=== PATIENT | male | born 1965 | race Caucasian/White ===

== ENCOUNTER → 2017-08-06 | Outpatient (CLI) | payer BC ==
[~2017-08-06] MED LIST: CENTRUM COMPLE1 EACH PO; DELTASONE20 MG PO; FISH OIL500 M1 PO; GARLIC1000 M1 PO; VITAMIN D-32000 UNIT PO; ZETIA10 MG PO
[2017-08-06 12:26] LABS: BILIRUBIN NEGATIVE (NEGATIVE); BLOOD NEGATIVE (NEGATIVE); CLARITY CLEAR (CLEAR); COLOR YELLOW (YELLOW); GLUCOSE NEGATIVE (NEGATIVE); KETONE NEGATIVE (NEGATIVE); LEUKO ESTERASE NEGATIVE (NEGATIVE); NITRITE NEGATIVE (NEGATIVE); SPECIFIC GRAVITY 1.025 (1.005-1.030); UROBILINOGEN 0.2 E.U./dl (0.2-1.0)
[2017-08-06 12:29] LABS: BASO # 0.1 10*3/uL (0.0-0.1); BASO % 0.7 % (0.0-1.0); EOS # 0.2 10*3/uL (0.0-0.4); EOS % 2.5 % (1.0-4.0); HEMATOCRIT 48.1 % (42.0-52.0); HEMOGLOBIN 16.6 g/dl (14.0-18.0); LYMPH # 2.6 10*3/uL (1.3-4.4); LYMPH % 29.5 % (27.0-41.0); MEAN CORPUSCULAR HGB 31.7 pg (27.0-31.0); MEAN CORPUSCULAR HGB CONC 34.5 g/dl (33.0-37.0); MEAN PLATELET VOLUME 9.8 fl (9.6-12.3); MONO # 0.6 10*3/uL (0.1-1.0); MONO % 6.5 % (3.0-9.0); NEUT # 5.4 10*3/uL (2.3-7.9); NEUT % 60.6 % (47.0-73.0); PLATELET COUNT AUTOMATED 247 10*3/uL (130-400); RED BLOOD COUNT 5.23 10*6/uL (4.50-5.90); RED CELL DISTRI WIDTH 12.3 % (0-14.5); WHITE BLOOD COUNT 8.9 10*3/uL (4.8-10.8)
[2017-08-06 12:49] LABS: BUN 20 mg/dl (7-24); CHLORIDE 107 mmol/L (98-107); CREATININE 0.84 mg/dL (0.70-1.30); POTASSIUM 4.1 mmol/L (3.5-5.1); SODIUM 140 mmol/L (136-145)
[2017-08-06 12:54] LABS: ACT PARTIAL THROMBO TIME 25.5 SECONDS (20.8-31.5); INTERNATIONAL NORM RATIO 0.9 (2.0-3.5)
[2017-08-06 12:55] LABS: EPITHELIAL CELLS 0-2; MUCOUS 1+; WBC 0-2 wbc/hpf (0-5)
== END | disposition home or self-care (01) ==
LOC: LAB 11:03
PROVIDERS: Surgery
DX: Z01.818 Encounter for other preprocedural examination (principal); K40.90 Unilateral inguinal hernia, without obstruction or gangrene, not specified as recurrent; R79.1 Abnormal coagulation profile

== ENCOUNTER → 2017-08-12 | Day surgery (SDC) | payer BC ==
[2017-08-06 11:20] VITALS: BP 133/80
[~2017-08-12] VITALS: Ht 177.8 cm; Wt 77.1 kg
[~2017-08-12] MED LIST changes: +NORCO 5-325 TA1 EACH PO
--- NOTE | ~2017-08-12 | O ---
[place], [place] OPERATIVE NOTE NAME: BURTON PIERRE UNIT #: [id number] ROOM: DOCTOR: PASHA FORD MD BIRTHDATE: [birth year] DOS: 08/12/2017 PREOPERATIVE DIAGNOSIS: Right inguinal hernia. POSTOPERATIVE DIAGNOSIS: Right inguinal hernia. PROCEDURE: Right inguinal hernia repair with plug and mesh (large, light). SURGEON: Pasha Ford MD CHIEF COMMUNICATIONS OFFICER: MS3. ANESTHESIA: General with endotracheal intubation. INDICATIONS: This is a 51-year-old gentleman who is here for right inguinal hernia repair with mesh and plug. The procedure and its complications were explained to the patient in detail preoperatively. Complications that were discussed included, but were not limited to bleeding, infection, recurrence, prolonged postoperative pain, damage to underlying vital structures and infection. He agreed to proceed. DESCRIPTION OF PROCEDURE: After identifying the patient, the patient was brought to the operating suite and laid in the supine position. After induction of general anesthesia, timeout procedure was called and the parts were then painted and draped in the usual sterile fashion. An incision was made in the right groin, parallel to the right inguinal ligament. The skin and the subcutaneous tissue were incised in the line of the incision. The external oblique aponeurosis was incised on the line of its fibers. A Platina drain was encircled around the cord structures. Indirect hernia was found and this was from the cord structures and then excised and sent for histopathological diagnosis along with the cord lipoma. The remnant of the sac was transfixed with the help of 0 Vicryl and allowed to retract back into the peritoneal cavity. A large plug was then placed in the internal inguinal and sutured to the overlying conjoined tendon for fixation a large mesh was then brought in and cut to size and sutured to the conjoined tendon superiorly and to the upturned part of the inguinal ligament inferiorly with the help of 3-0 nylon. Thereafter, the external oblique aponeurosis was approximated with the help of 0 Vicryl. The subcutaneous tissue was approximated with the help of 3-0 Vicryl in a running fashion. The edges of the skin were approximated of 4-0 Vicryl after the edges were infiltrated with local anesthesia. Dressing was placed. The patient tolerated the procedure well and was extubated uneventfully and brought back to the recovery room in a stable fashion. There were no complications. Dr. Pasha Ford, the attending surgeon, was present throughout the operating case. [place], [place] OPERATIVE NOTE NAME: BURTON PIERRE UNIT #: [id number] ROOM: DOCTOR: PASHA FORD MD BIRTHDATE: [birth year] Pasha Ford MD CM:OPRECORD:OPERATIVE NOTE 1154 [id number] PASHA FORD MD 08/12/17 1410 interface
[2017-08-12 09:45] VITALS: BP 137/84
[2017-08-12 12:15] VITALS: BP 118/76
[2017-08-12 12:16] VITALS: BP 124/73
[2017-08-12 12:30] VITALS: BP 117/78
[2017-08-12 12:45] VITALS: BP 109/74
[2017-08-12 13:00] VITALS: BP 110/78
== END | disposition home or self-care (01) ==
LOC: SDC 08-06 11:00
DX: K40.90 Unilateral inguinal hernia, without obstruction or gangrene, not specified as recurrent (principal); E78.00 Pure hypercholesterolemia, unspecified; Z82.49 Family history of ischemic heart disease and other diseases of the circulatory system; F17.210 Nicotine dependence, cigarettes, uncomplicated

== ENCOUNTER → 2024-02-26 | Outpatient (CLI) | payer BC | LOC: CT 09:28 | PROVIDERS: ATTEND Internal Medicine Critical Care Medicine | DX: J84.10 Pulmonary fibrosis, unspecified (principal); J47.9 Bronchiectasis, uncomplicated; J30.89 Other allergic rhinitis; J84.170 Interstitial lung disease with progressive fibrotic phenotype in diseases classified elsewhere; N28.1 Cyst of kidney, acquired; M05.9 Rheumatoid arthritis with rheumatoid factor, unspecified; Z87.891 Personal history of nicotine dependence ==